=== PATIENT | male | born 1940 | race Caucasian/White ===

== ENCOUNTER → 2019-06-02 | Outpatient (CLI) | payer OTHER ==
--- NOTE | 2019-06-05 02:26 | ECWPNPC ---
PATIENT NAME: FREDY PENALOZA : 1940 GENDER: MALE VISIT DATE: 06/02/2019 DISCHARGE DATE: 06/02/19 1516 VISIT LOCKED DATE TIME: PHYSICIAN: ARSENIO KNIGHT RESOURCE: ARSENIO KNIGHT REASON FOR APPOINTMENT 1. BILATERAL HIP/BACK HISTORY OF PRESENT ILLNESS PAIN SCREENING: PATIENT HAS A COMPLAINT OF ACUTE OR CHRONIC PAIN :YES 78-YEAR-OLD MALE IN FOR INITIAL PAIN CONSULT. PATIENT HAS COMPLAINTS OF HIP AND BACK PAIN WHICH HAS BEEN PRESENT FOR MANY YEARS HE DOES ADMIT THE HIP PAIN IS FAR WORSE THAN THE BACK PAIN. HE RATES HIS PAIN CURRENTLY AT AN 8 OUT OF 10 AND DESCRIBES IT SHARP AND ON MOVEMENT. PATIENT IS CURRENTLY ON TRAMADOL TO HELP MANAGE HIS PAIN AND HE ADMITS TO TAKING IT AT NIGHT IT HELPS HIM SLEEP. FALL RISK SCREENING: SCREENING :NO FALLS REPORTED IN THE LAST YEAR CURRENT MEDICATIONS TAKING TRAMADOL HCL 50 MG TABLET 1 TABLET NEEDED ORALLY BID TAKING METFORMIN HCL 500 MG TABLET 1 TABLET WITH A MEAL ORALLY ONCE A DAY TAKING DOCUSATE SODIUM 50 MG CAPSULE 1 CAPSULE NEEDED ORALLY ONCE A DAY TAKING STIOLTO RESPIMAT 2.5-2.5 MCG/ACT AEROSOL SOLUTION 2 PUFFS INHALATION ONCE A DAY TAKING ASPIR-LOW 81 MG TABLET DELAYED RELEASE 1 TABLET ORALLY ONCE A DAY TAKING ROSUVASTATIN CALCIUM 40 MG TABLET 1 TABLET ORALLY ONCE A DAY TAKING CARVEDILOL 25 MG TABLET 1 TABLET WITH FOOD ORALLY TWICE A DAY TAKING FUROSEMIDE 40 MG TABLET DIRECTED ORALLY DAILY TAKING ISOSORBIDE MONONITRATE ER 120 MG TABLET EXTENDED RELEASE 24 HOUR 1 TABLET IN THE MORNING ORALLY ONCE A DAY TAKING OMEPRAZOLE 20 MG CAPSULE DELAYED RELEASE 1 CAPSULE 30 MINUTES BEFORE MORNING MEAL ORALLY ONCE A DAY TAKING ALLOPURINOL 300 MG TABLET 1 TABLET ORALLY ONCE A DAY TAKING PRESERVISION AREDS - CAPSULE DIRECTED ORALLY DAILY TAKING AMLODIPINE BESYLATE 10 MG TABLET 1 TABLET ORALLY ONCE A DAY TAKING LISINOPRIL 40 MG TABLET 1 TABLET ORALLY ONCE A DAY TAKING COLCHICINE 0.6 MG TABLET 1 TABLET ORALLY ONCE A DAY NEEDED TAKING NITROGLYCERIN 0.4 MG TABLET SUBLINGUAL DIRECTED SUBLINGUAL MEDICATION LIST REVIEWED AND RECONCILED WITH THE PATIENT PAST MEDICAL HISTORY HYPERTENSION ANGINA COPD CHF CARDIAC DISEASE MACULAR DEGENERATION DC - MULTIPLE PNEUMONIA ALLERGIES NIACIN: BLISTERS - ALLERGY SURGICAL HISTORY OPEN HEARTH SURGERY X3 MULTIPLE CARDIAC STENTS MANY OTHER - CANNOT REMEMBER FAMILY HISTORY FATHER: , DIAGNOSED WITH DIABETES, UNSPECIFIED HEART DISEASE MOTHER: , OTHER MALIGNANT NEOPLASM OF UNSPECIFIED SITE 3 SISTER(S) . 3 SON(S) - HEALTHY. MOTHER - LIVER CANCEROLDEST SISTER - DIABETESOLDEST SON - STROKE. SOCIAL HISTORY GENERAL: TOBACCO USE ARE YOU A:NONSMOKER OTHERS AT HOME: SPOUSE. EDUCATION LEVEL OF EDUCATION:HIGH SCHOOL DIET: LOW FAT, LOW CHOLESTEROL. LANGUAGE LANGUAGES SPOKEN:KYRGYZ RECREATIONAL DRUG USE DRUG USE?NO EXERCISE: NONE. 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 NEEDED?NO PAIN CLINIC PFS, CLERGY, PUBLIC HEALTH REFERRALS HAS THE PATIENT BEEN EDUCATED REGARDING HIS/HER PLAN OF CARE?YES HAS THE PATIENT BEEN EDUCATED REGARDING PAIN, THE RISK FOR PAIN, THE IMPORTANCE OF EFFECTIVE PAIN MANAGEMENT, AND THE PAIN ASSESSMENT PROCESS?YES LATEX QUESTIONNAIRE LATEX ALLERGY : HAVE YOU EVER DEVELOPED ANY TYPE OF REACTION AFTER HANDLING LATEX PRODUCTS SUCH RUBBER GLOVES, CONDOMS, DIAPHRAGMS, BALLOONS, SOCKS, OR UNDERWEAR?NO LATEX ALLERGY : HAVE YOU EVER DEVELOPED ANY TYPE OF REACTION DURING OR AFTER DENTAL APPOINTMENT, VAGINAL/RECTAL EXAMINATION, SURGICAL PROCEDURE, OR ANY OTHER EXPOSURE?NO LATEX RISK : HAVE YOU EVER HAD ANY DIFFICULTY BREATHING OR HIVES AFTER EATING OR HANDLING ANY FRUITS, OR VEGETABLES; SUCH KIWI, BANANAS, STONE FRUITS, OR CHESTNUTSNO LATEX RISK : DO YOU HAVE A PREVIOUS PERSONAL HISTORY OF MORE THAN NINE SURGERIES, SPINA BIFIDA, OR REPEATED CATHERIZATIONS? YES - PLEASE INDICATE : > 9 SURGERIES LATEX RISK : ARE YOU FREQUENTLY EXPOSED TO LATEX PRODUCTS IN YOUR OCCUPATION?NO DATE ASKED : 06/02/2019 CAFFEINE CAFFEINE USE?YES HOW OFTEN AND HOW MUCH? 1/DAY ADVANCE DIRECTIVE ADVANCE DIRECTIVE DISCUSSED WITH PATIENT:YES HCP - MARYAM CARRIONT () MARITAL STATUS: . ALCOHOL SCREENING DID YOU HAVE A DRINK CONTAINING ALCOHOL IN THE PAST YEAR?NO POINTS0 INTERPRETATIONNEGATIVE OCCUPATION: RETIRED. REVIEWED WITH PATIENT 06/02/2019 1433 JS. HOSPITALIZATION/MAJOR DIAGNOSTIC PROCEDURE SUREGERY RELATED REVIEW OF SYSTEMS REVIEWED BY: PROVIDER: VENKATESH HANSON . CONSTITUTIONAL: ANY CHANGE IN YOUR MEDICAL CONDITION? NO . CHILLS NO . FEVER NO . INFECTION: DO YOU HAVE NEW INFECTIONS? NO . DO YOU HAVE HISTORY OF MRSA? NO . MUSCULOSKELETAL: ANY NEW PATTERNS OF PAIN OR NUMBNESS? NO . SYTEMIC LUPUS NO . GASTROENTEROLOGY: ANY NEW CHANGE IN BOWEL CONTROL? YES, STATES SOME CONSTIPATION . BARRETTS ESOPHAGUS NO . CIRRHOSIS NO . HEPATITIS NO . LIVER FAILURE NO . ACID REFLUX NO . UNEXPLAINED WEIGHT LOSS NO . GENITOURINARY: ANY NEW CHANGE IN BLADDER CONTROL? NO . IS THERE A CHANCE YOU COULD BE ? NO . HEMATOLOGY/LYMPH: DO YOU TAKE ANY BLOOD THINNERS? (FOR EXAMPLE- COUMADIN, PLAVIX, AGGRENOX, PLATEL, PRADAXA, OR XARELTO) NO . WHEN WAS YOUR LAST DOSE? DATE: TIME: . LOW PLATELET COUNT NO . SICKLE CELL DISEASE NO . VON WILLIEBRANDS NO . FACTOR V LEIDEN NO . THALLASEMIA NO . ANEMIA NO . EASY BRUISING NO . NEUROLOGY: HAVE YOU FALLEN IN THE PAST 12 MONTHS? YES, STATES FALLS RELATED TO MULTIPLE CAUSES, NO MAJOR INJURIES OR ED VISITS RECENTLY RELATED TO FALLS . ANY NEW EXTREMITY NUMBNESS OR WEAKNESS? YES, STATES WEAKNESS TO BILATERAL LEGS AND NUMBNESS/TINGLING TO BILATERAL ARMS . HEAD INJURY NO . DEMENTIA NO . CEREBRAL PALSY NO . MULTIPLE SCLEROSIS NO . DIZZINESS NO . HEADACHE NO . STROKES NO . VERTIGO NO . CARDIOLOGY: DO YOU HAVE A PACEMAKER OR DEFIBRILLATOR? YES, PACEMAKER . ANGINA YES . HEART ATTACK YES, MULTIPLE . HEART SURGERY YES, STENTS PLACED . CONGESTIVE HEART FAILURE/FLUID OVERLOAD YES . CHEST PAIN PATIENT ADMITS, LESS FREQUENT . HIGH BLOOD PRESSURE ON MEDICATION(S) . IRREGULAR HEART BEAT AT REST . RESPIRATORY: HAVE YOU BEEN SICK IN THE PAST WEEK? NO . FEVER NO . FLU LIKE SYMPTOMS? NO . CPAP NO . BYPAP NO . ASTHMA NO . EMPHYSEMA NO . CHRONIC LUNG DISEASES YES, COPD . SHORTNESS OF BREATH ON EXERTION YES . COUGH NO . SNORING NO . INTEGUMENTARY: DO YOU HAVE ANY RASHES OR OPEN SORES? NO . ALLERGIC/IMMUNO: ARE YOU ALLERGIC TO IV DYE? NO . ANY NEW ALLERGIES? NO . PSYCHIATRIC: DO YOU HAVE THOUGHTS OF HURTING YOURSELF OR SOMEONE ELSE? NO . ARE YOU ABUSED, NEGLECTED, OR IN AN UNSAFE ENVIRONMENT? NO . ENDOCRINOLOGY: ARE YOU DIABETIC? YES . THYROID DISORDER NO . OTHER: DO YOU NEED ANY PRESCRIPTIONS? YES . IF YES, PLEASE LIST: ____TRAMADOL . ANY NEW PROBLEMS WITH YOUR MEDICATIONS? NO . WHEN DID YOU LAST EAT? ____ . WHEN DID YOU LAST DRINK? ____ . WHAT DID YOU LAST DRINK? ____ . NAME OF PERSON DRIVING YOU HOME? ____ . DO YOU HAVE ANY OTHER QUESTIONS OR CONCERNS PNEUMONIA AND SHINGLES VACCINES IN APRIL . VITAL SIGNS WT 158.6 LBS, HT 68 IN, BMI 24.11 INDEX, BP 136/63 MM HG, HR 71 /MIN, RR 18 /MIN, TEMP 97.5 F, OXYGEN SAT % 96%, SAFE IN ENV? (Y/N) YES, NA INITIALS AW 1414, REVIEWED BY: KANCHAN. EXAMINATION GENERAL EXAMINATION: GENERALNO ACUTE DISTRESS, WELL NOURISHED AND HYDRATED. PSYCHAPPROPRIATE MOOD AND AFFECT . LUNGS:CLEAR TO AUSCULTATION BILATERALLY, NO WHEEZES, RHONCHI, RALES. HEART:NO MURMURS, REGULAR RATE AND RHYTHM. BACK:DENIES TENDERNESS ALONG LUMBAR SPINE, SURROUNDING SKIN SHOWS NO ERYTHEMA, ECCHYMOSIS, INCREASED WARMTH, AND/OR SKIN ERUPTIONS NOTED. . MUSCULOSKELETAL:POINT TENDER LEFT HIP , NOTABLE WEAKNESS OF THE LOWER EXTREMITIES BILATERALLY. ASSESSMENTS CHRONIC HIP PAIN - M25.559 (PRIMARY) CHRONIC BILATERAL LOW BACK PAIN - M54.[address] HIP PAIN [address] SCAN : HIP, [id number] CT SCAN : HIP, [id number] CLINICAL NOTES: 78-YEAR-OLD MALE IN FOR INITIAL PAIN CONSULT. GIVEN PRESENTING SYMPTOMS AND RESULTS OF PHYSICAL EXAMINATION RECOMMENDED CT OF THE LUMBAR SPINE, AND HIPS BILATERALLY WITH FOLLOW-UP AFTER STUDIES. PATIENT HAS EXPRESSED UNDERSTANDING OF AND WAS IN AGREEMENT WITH TREATMENT PLAN. GIVEN TIME TO ASK QUESTIONS AND EXPRESS CONCERNS. CHRONIC BILATERAL LOW BACK PAIN CT SCAN : L-S [id number] PROCEDURE CODES FA211 ESTABILISHED PATIENT [facility] CHARGE DISPOSITION & COMMUNICATION FOLLOW UP POST IMAGING (REASON: CT OF HIPS BILATERALLY, AND LOW BACK) ELECTRONICALLY SIGNED BY BOAZ FOURNIER ON 06/04/2019 AT 01:35 PM EST DISCLAIMER : THIS IS A VISIT SUMMARY EXTRACTED FROM THE [employer] CHART. IT IS NOT A COPY OF THE [employer] PROGRESS NOTE. LANDON
== END ==
LOC: M PAIN 13:30
PROVIDERS: ATTEND Family Medicine
DX: M25.559 Pain in unspecified hip (principal); M54.5 Low back pain; E11.9 Type 2 diabetes mellitus without complications; I10 Essential (primary) hypertension; J44.9 Chronic obstructive pulmonary disease, unspecified; I25.2 Old myocardial infarction; Z91.09 Other allergy status, other than to drugs and biological substances; Z95.0 Presence of cardiac pacemaker; Z95.5 Presence of coronary angioplasty implant and graft; Z79.82 Long term (current) use of aspirin; Z79.84 Long term (current) use of oral hypoglycemic drugs; Z79.899 Other long term (current) drug therapy

== ENCOUNTER → 2019-06-18 | Outpatient (CLI) | payer OTHER ==
--- NOTE | 2019-06-20 00:40 | ECWPNPC ---
PATIENT NAME: RFEDY PENALOZA : 1940 GENDER: MALE VISIT DATE: 06/18/2019 DISCHARGE DATE: 06/18/19 1202 VISIT LOCKED DATE TIME: PHYSICIAN: ARSENIO KNIGHT RESOURCE: ARSENIO KNIGHT REASON FOR APPOINTMENT 1. CT FOLLOW UP HISTORY OF PRESENT ILLNESS HISTORY OF PRESENT ILLNESS: PAIN THE PATIENT DESCRIBES THE PAINDURING THE LAST MONTH SEVERITY - PAIN SCORE OF7/10 LOCATIONSLOWER BACK QUALITYSHARP DURATIONONLY WITH SPECIFIC ACTIVITIES, INTERMITTENT, AWAKENS FROM SLEEEP 78-YEAR-OLD MALE IN FOR CHRONIC PAIN FOLLOW-UP. PATIENT HAD CTS PERFORMED RECENTLY WHICH WILL BE REVIEWED WITH PATIENT. HE RATES HIS PAIN CURRENTLY AT A 7 OUT OF 10 AND DESCRIBES IT SHARP. FALL RISK SCREENING: SCREENING :TWO OR MORE FALLS WITHOUT INJURY IN THE PAST YEAR CURRENT MEDICATIONS TAKING TRAMADOL HCL 50 MG TABLET 1 TABLET NEEDED ORALLY BID TAKING METFORMIN HCL 500 MG TABLET 1 TABLET WITH A MEAL ORALLY ONCE A DAY TAKING DOCUSATE SODIUM 50 MG CAPSULE 1 CAPSULE NEEDED ORALLY ONCE A DAY TAKING STIOLTO RESPIMAT 2.5-2.5 MCG/ACT AEROSOL SOLUTION 2 PUFFS INHALATION ONCE A DAY TAKING ASPIR-LOW 81 MG TABLET DELAYED RELEASE 1 TABLET ORALLY ONCE A DAY TAKING ROSUVASTATIN CALCIUM 40 MG TABLET 1 TABLET ORALLY ONCE A DAY TAKING CARVEDILOL 25 MG TABLET 1 TABLET WITH FOOD ORALLY TWICE A DAY TAKING FUROSEMIDE 40 MG TABLET DIRECTED ORALLY DAILY TAKING ISOSORBIDE MONONITRATE ER 120 MG TABLET EXTENDED RELEASE 24 HOUR 1 TABLET IN THE MORNING ORALLY ONCE A DAY TAKING OMEPRAZOLE 20 MG CAPSULE DELAYED RELEASE 1 CAPSULE 30 MINUTES BEFORE MORNING MEAL ORALLY ONCE A DAY TAKING ALLOPURINOL 300 MG TABLET 1 TABLET ORALLY ONCE A DAY TAKING PRESERVISION AREDS - CAPSULE DIRECTED ORALLY DAILY TAKING AMLODIPINE BESYLATE 10 MG TABLET 1 TABLET ORALLY ONCE A DAY TAKING LISINOPRIL 40 MG TABLET 1 TABLET ORALLY ONCE A DAY TAKING COLCHICINE 0.6 MG TABLET 1 TABLET ORALLY ONCE A DAY NEEDED TAKING NITROGLYCERIN 0.4 MG TABLET SUBLINGUAL DIRECTED SUBLINGUAL MEDICATION LIST REVIEWED AND RECONCILED WITH THE PATIENT PAST MEDICAL HISTORY HYPERTENSION ANGINA COPD CHF CARDIAC DISEASE MACULAR DEGENERATION CA - MULTIPLE PNEUMONIA ALLERGIES NIACIN: BLISTERS - ALLERGY SURGICAL HISTORY OPEN HEARTH SURGERY X3 MULTIPLE CARDIAC STENTS MANY OTHER - CANNOT REMEMBER FAMILY HISTORY FATHER: , DIAGNOSED WITH DIABETES, UNSPECIFIED HEART DISEASE MOTHER: , OTHER MALIGNANT NEOPLASM OF UNSPECIFIED SITE 3 SISTER(S) . 3 SON(S) - HEALTHY. MOTHER - LIVER CANCEROLDEST SISTER - DIABETESOLDEST SON - STROKE. SOCIAL HISTORY GENERAL: TOBACCO USE ARE YOU A:NONSMOKER OTHERS AT HOME: SPOUSE. EDUCATION LEVEL OF EDUCATION:HIGH SCHOOL DIET: LOW FAT, LOW CHOLESTEROL. LANGUAGE LANGUAGES SPOKEN:URUGUAYAN RECREATIONAL DRUG USE DRUG USE?NO EXERCISE: NONE. 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 NEEDED?NO PAIN CLINIC PFS, CLERGY, PUBLIC HEALTH REFERRALS HAS THE PATIENT BEEN EDUCATED REGARDING HIS/HER PLAN OF CARE?YES HAS THE PATIENT BEEN EDUCATED REGARDING PAIN, THE RISK FOR PAIN, THE IMPORTANCE OF EFFECTIVE PAIN MANAGEMENT, AND THE PAIN ASSESSMENT PROCESS?YES LATEX QUESTIONNAIRE LATEX ALLERGY : HAVE YOU EVER DEVELOPED ANY TYPE OF REACTION AFTER HANDLING LATEX PRODUCTS SUCH RUBBER GLOVES, CONDOMS, DIAPHRAGMS, BALLOONS, SOCKS, OR UNDERWEAR?NO LATEX ALLERGY : HAVE YOU EVER DEVELOPED ANY TYPE OF REACTION DURING OR AFTER DENTAL APPOINTMENT, VAGINAL/RECTAL EXAMINATION, SURGICAL PROCEDURE, OR ANY OTHER EXPOSURE?NO DATE ASKED : 06/02/2019 LATEX RISK : HAVE YOU EVER HAD ANY DIFFICULTY BREATHING OR HIVES AFTER EATING OR HANDLING ANY FRUITS, OR VEGETABLES; SUCH KIWI, BANANAS, STONE FRUITS, OR CHESTNUTSNO LATEX RISK : DO YOU HAVE A PREVIOUS PERSONAL HISTORY OF MORE THAN NINE SURGERIES, SPINA BIFIDA, OR REPEATED CATHERIZATIONS? YES - PLEASE INDICATE : > 9 SURGERIES LATEX RISK : ARE YOU FREQUENTLY EXPOSED TO LATEX PRODUCTS IN YOUR OCCUPATION?NO CAFFEINE CAFFEINE USE?YES HOW OFTEN AND HOW MUCH? 1/DAY ADVANCE DIRECTIVE ADVANCE DIRECTIVE DISCUSSED WITH PATIENT:YES HCP - MARYAM CA () MARITAL STATUS: . ALCOHOL SCREENING DID YOU HAVE A DRINK CONTAINING ALCOHOL IN THE PAST YEAR?NO POINTS0 INTERPRETATIONNEGATIVE OCCUPATION: RETIRED. REVIEWED WITH PATIENT 06/02/2019 1433 JS. HOSPITALIZATION/MAJOR DIAGNOSTIC PROCEDURE SUREGERY RELATED REVIEW OF SYSTEMS REVIEWED BY: PROVIDER: VENKATESH HANSON . CONSTITUTIONAL: ANY CHANGE IN YOUR MEDICAL CONDITION? NO . CHILLS NO . FEVER NO . INFECTION: DO YOU HAVE NEW INFECTIONS? NO . DO YOU HAVE HISTORY OF MRSA? NO . MUSCULOSKELETAL: ANY NEW PATTERNS OF PAIN OR NUMBNESS? NO . GASTROENTEROLOGY: ANY NEW CHANGE IN BOWEL CONTROL? NO . GENITOURINARY: ANY NEW CHANGE IN BLADDER CONTROL? NO . IS THERE A CHANCE YOU COULD BE ? NO . HEMATOLOGY/LYMPH: DO YOU TAKE ANY BLOOD THINNERS? (FOR EXAMPLE- COUMADIN, PLAVIX, AGGRENOX, PLATEL, PRADAXA, OR XARELTO) NO . WHEN WAS YOUR LAST DOSE? DATE: TIME: . NEUROLOGY: HAVE YOU FALLEN IN THE PAST 12 MONTHS? YES, COUPLE OF FALLS WITH NO INJURY . ANY NEW EXTREMITY NUMBNESS OR WEAKNESS? NO . CARDIOLOGY: DO YOU HAVE A PACEMAKER OR DEFIBRILLATOR? YES, PACEMAKER . RESPIRATORY: HAVE YOU BEEN SICK IN THE PAST WEEK? NO . FEVER NO . FLU LIKE SYMPTOMS? NO . COUGH NO . INTEGUMENTARY: DO YOU HAVE ANY RASHES OR OPEN SORES? NO . ALLERGIC/IMMUNO: ARE YOU ALLERGIC TO IV DYE? NO . ANY NEW ALLERGIES? NO . PSYCHIATRIC: DO YOU HAVE THOUGHTS OF HURTING YOURSELF OR SOMEONE ELSE? NO . ARE YOU ABUSED, NEGLECTED, OR IN AN UNSAFE ENVIRONMENT? NO . ENDOCRINOLOGY: ARE YOU DIABETIC? NO . OTHER: DO YOU NEED ANY PRESCRIPTIONS? NO . IF YES, PLEASE LIST: ____ . ANY NEW PROBLEMS WITH YOUR MEDICATIONS? NO . WHEN DID YOU LAST EAT? ____ . WHEN DID YOU LAST DRINK? ____ . WHAT DID YOU LAST DRINK? ____ . NAME OF PERSON DRIVING YOU HOME? ____ . DO YOU HAVE ANY OTHER QUESTIONS OR CONCERNS NO . VITAL SIGNS WT 160.4 LBS, HT 68 IN, BMI 24.39 INDEX, BP 109/56 MM HG, HR 61 /MIN, RR 18 /MIN, TEMP 96.0 F, OXYGEN SAT % 95%, SAFE IN ENV? (Y/N) YES, NA INITIALS AW 1056, REVIEWED BY: LIANE SWAYER LPN. EXAMINATION GENERAL EXAMINATION: GENERALNO ACUTE DISTRESS, WELL NOURISHED AND HYDRATED. PSYCHAPPROPRIATE MOOD AND AFFECT . LUNGS:CLEAR TO AUSCULTATION BILATERALLY, NO WHEEZES, RHONCHI, RALES. HEART:NO MURMURS, REGULAR RATE AND RHYTHM. BACK: DENIES POINT TENDERNESS ALONG LUMBAR SPINE, SURROUNDING SKIN SHOWS NO ERYTHEMA, ECCHYMOSIS, INCREASED WARMTH, AND/OR SKIN ERUPTIONS NOTED. + MODIFIED SLR ON THE RIGHT SIDE.. MUSCULOSKELETAL: NOTABLE WEAKNESS OF THE RLE LLE WNL. ASSESSMENTS CHRONIC HIP PAIN - M25.559 (PRIMARY) INTERVERTEBRAL DISC DISORDER WITH RADICULOPATHY OF LUMBOSACRAL REGION - M51.17 TREATMENT INTERVERTEBRAL DISC DISORDER WITH RADICULOPATHY OF LUMBOSACRAL REGION NOTES: LESI L4-L5 L5-S1 EDUCATION REGARDING PROCEDURE REVEIWED WITH PATIENT REENA HANSON. CLINICAL NOTES: 78-YEAR-OLD MALE IN FOR CHRONIC PAIN FOLLOW-UP. CT RESULTS WERE REVIEWED. GIVEN PRESENTING SYMPTOMS, RESULTS PHYSICAL EXAMINATION, AND RESULTS OF CT RECOMMENDED EPIDURAL L4-L5 L5-S1 WITH POST PROCEDURAL FOLLOW-UP. PATIENT HAS EXPRESSED UNDERSTANDING OF AND WAS IN AGREEMENT WITH TREATMENT PLAN. GIVEN TIME TO ASK QUESTIONS AND EXPRESS CONCERNS. PROCEDURE CODES FA211 ESTABILISHED PATIENT [facility] CHARGE DISPOSITION & COMMUNICATION FOLLOW UP POSTPROCEDURE (REASON: LESI L4-L5 L5-S1) ELECTRONICALLY SIGNED BY BOAZ FOURNIER ON 06/19/2019 AT 09:37 AM EDT DISCLAIMER : THIS IS A VISIT SUMMARY EXTRACTED FROM THE [employer] CHART. IT IS NOT A COPY OF THE [employer] PROGRESS NOTE. LANDON
== END ==
LOC: M PAIN 11:15
PROVIDERS: ATTEND Family Medicine
DX: M25.559 Pain in unspecified hip (principal); M51.17 Intervertebral disc disorders with radiculopathy, lumbosacral region; G89.29 Other chronic pain; I10 Essential (primary) hypertension; J44.9 Chronic obstructive pulmonary disease, unspecified; I25.2 Old myocardial infarction; Z91.09 Other allergy status, other than to drugs and biological substances; Z95.0 Presence of cardiac pacemaker; Z79.82 Long term (current) use of aspirin; Z79.899 Other long term (current) drug therapy

== ENCOUNTER → 2019-07-29 | Outpatient (CLI) | payer OTHER ==
--- NOTE | 2019-08-05 02:18 | ECWPNPC ---
PATIENT NAME: FREDY PENALOZA : 1940 GENDER: MALE VISIT DATE: 07/29/2019 DISCHARGE DATE: 07/29/19 1037 VISIT LOCKED DATE TIME: PHYSICIAN: JOSE L SERVIN MD RESOURCE: JOSE L SERVIN MD REASON FOR APPOINTMENT 1. LESI L4/L5, L5/S1 HISTORY OF PRESENT ILLNESS HISTORY OF PRESENT ILLNESS: PAIN THE PATIENT DESCRIBES THE PAIN... PERMISSION FROM PATIENT WAS RECEIVED TO DO TELEPHONE OFFICE VISIT. 78 YEAR OLD MALE PATIENT WITH A HISTORY OF CHRONIC LOW BACK AND LEG PAIN. THE PATIENT DESCRIBES HIS PAIN IT COMES AND GOES, SHARP, STABBING, SORE, SHOOTING WITH A PAIN SCORE OF 6-9/10 DEPENDING ON PHYSICAL ACTIVITY. THE PATIENT STATES HIS MAIN PAIN IS IN HIS LOWER BACK, AND HE EXPERIENCES LEG PAIN MAINLY IN THE EVENING WHEN HE IS TRYING TO RELAX. THE PATIENT SAYS HE HAS BEEN SUFFERING FROM HIS PAIN FOR MANY YEARS. THE PATIENT SAYS HIS PAIN IS WORSENING AND IS AFFECTING HIS ABILITY TO PERFORM HIS DAILY ACTIVITIES. PATIENT DENIES UNEXPLAINABLE WEIGHT LOSS, FEVER, CHILLS, NEW CHANGES ON HIS URINARY OR BOWEL CONTROL. FALL RISK SCREENING: SCREENING :NO FALLS REPORTED IN THE LAST YEAR CURRENT MEDICATIONS TAKING TRAMADOL HCL 50 MG TABLET 1 TABLET NEEDED ORALLY BID TAKING METFORMIN HCL 500 MG TABLET 1 TABLET WITH A MEAL ORALLY ONCE A DAY TAKING DOCUSATE SODIUM 50 MG CAPSULE 1 CAPSULE NEEDED ORALLY ONCE A DAY TAKING STIOLTO RESPIMAT 2.5-2.5 MCG/ACT AEROSOL SOLUTION 2 PUFFS INHALATION ONCE A DAY TAKING ASPIR-LOW 81 MG TABLET DELAYED RELEASE 1 TABLET ORALLY ONCE A DAY TAKING ROSUVASTATIN CALCIUM 40 MG TABLET 1 TABLET ORALLY ONCE A DAY TAKING CARVEDILOL 25 MG TABLET 1 TABLET WITH FOOD ORALLY TWICE A DAY TAKING FUROSEMIDE 40 MG TABLET DIRECTED ORALLY DAILY TAKING ISOSORBIDE MONONITRATE ER 120 MG TABLET EXTENDED RELEASE 24 HOUR 1 TABLET IN THE MORNING ORALLY ONCE A DAY TAKING OMEPRAZOLE 20 MG CAPSULE DELAYED RELEASE 1 CAPSULE 30 MINUTES BEFORE MORNING MEAL ORALLY ONCE A DAY TAKING ALLOPURINOL 300 MG TABLET 1 TABLET ORALLY ONCE A DAY TAKING PRESERVISION AREDS - CAPSULE DIRECTED ORALLY DAILY TAKING AMLODIPINE BESYLATE 10 MG TABLET 1 TABLET ORALLY ONCE A DAY TAKING LISINOPRIL 40 MG TABLET 1 TABLET ORALLY ONCE A DAY TAKING COLCHICINE 0.6 MG TABLET 1 TABLET ORALLY ONCE A DAY NEEDED TAKING NITROGLYCERIN 0.4 MG TABLET SUBLINGUAL DIRECTED SUBLINGUAL MEDICATION LIST REVIEWED AND RECONCILED WITH THE PATIENT PAST MEDICAL HISTORY HYPERTENSION ANGINA COPD CHF CARDIAC DISEASE MACULAR DEGENERATION MN - MULTIPLE PNEUMONIA ALLERGIES NIACIN: BLISTERS - ALLERGY SURGICAL HISTORY OPEN HEARTH SURGERY X3 MULTIPLE CARDIAC STENTS MANY OTHER - CANNOT REMEMBER FAMILY HISTORY FATHER: , DIAGNOSED WITH DIABETES, UNSPECIFIED HEART DISEASE MOTHER: , OTHER MALIGNANT NEOPLASM OF UNSPECIFIED SITE 3 SISTER(S) . 3 SON(S) - HEALTHY. MOTHER - LIVER CANCEROLDEST SISTER - DIABETESOLDEST SON - STROKE. SOCIAL HISTORY GENERAL: TOBACCO USE ARE YOU A:NONSMOKER LATEX QUESTIONNAIRE LATEX ALLERGY : HAVE YOU EVER DEVELOPED ANY TYPE OF REACTION AFTER HANDLING LATEX PRODUCTS SUCH RUBBER GLOVES, CONDOMS, DIAPHRAGMS, BALLOONS, SOCKS, OR UNDERWEAR?NO LATEX ALLERGY : HAVE YOU EVER DEVELOPED ANY TYPE OF REACTION DURING OR AFTER DENTAL APPOINTMENT, VAGINAL/RECTAL EXAMINATION, SURGICAL PROCEDURE, OR ANY OTHER EXPOSURE?NO LATEX RISK : HAVE YOU EVER HAD ANY DIFFICULTY BREATHING OR HIVES AFTER EATING OR HANDLING ANY FRUITS, OR VEGETABLES; SUCH KIWI, BANANAS, STONE FRUITS, OR CHESTNUTSNO LATEX RISK : DO YOU HAVE A PREVIOUS PERSONAL HISTORY OF MORE THAN NINE SURGERIES, SPINA BIFIDA, OR REPEATED CATHERIZATIONS? YES - PLEASE INDICATE : > 9 SURGERIES LATEX RISK : ARE YOU FREQUENTLY EXPOSED TO LATEX PRODUCTS IN YOUR OCCUPATION?NO DATE ASKED : 07/29/2019 ALCOHOL SCREENING DID YOU HAVE A DRINK CONTAINING ALCOHOL IN THE PAST YEAR?NO POINTS0 INTERPRETATIONNEGATIVE RECREATIONAL DRUG USE DRUG USE?NO CAFFEINE CAFFEINE USE?YES HOW OFTEN AND HOW MUCH? 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 DIET: LOW FAT, LOW CHOLESTEROL. EXERCISE: NONE. MARITAL STATUS: . OTHERS AT HOME: SPOUSE. NEW PATIENT PAIN DIARY TODAY'S VISIT 07/29/2019 PATIENT DESCRIBES PAIN :IT COMES AND GOES, SHARP, STABBING, SORE, SHOOTING FROM 0-10, WHAT LEVEL IS YOUR PAIN TODAY?7 PAIN CLINIC PFS, CLERGY, PUBLIC HEALTH REFERRALS WAS THE PROVIDER NOTIFIED OF ANY PERTINENT INFO?YES HAS THE PATIENT BEEN EDUCATED REGARDING HIS/HER PLAN OF CARE?YES HAS THE PATIENT BEEN EDUCATED REGARDING PAIN, THE RISK FOR PAIN, THE IMPORTANCE OF EFFECTIVE PAIN MANAGEMENT, AND THE PAIN ASSESSMENT PROCESS?YES ADVANCE DIRECTIVE ADVANCE DIRECTIVE DISCUSSED WITH PATIENT:YES HCP - MARYAM PENALOZA () [phone] REVIEWED WITH PATIENT 06/02/2019 1433 JS. HOSPITALIZATION/MAJOR DIAGNOSTIC PROCEDURE SUREGERY RELATED REVIEW OF SYSTEMS REVIEWED BY: PROVIDER: JOSE L SERVIN MD . CONSTITUTIONAL: ANY CHANGE IN YOUR MEDICAL CONDITION? NO . CHILLS NO . FEVER NO . INFECTION: DO YOU HAVE NEW INFECTIONS? NO . DO YOU HAVE HISTORY OF MRSA? NO . MUSCULOSKELETAL: ANY NEW PATTERNS OF PAIN OR NUMBNESS? NO . GASTROENTEROLOGY: ANY NEW CHANGE IN BOWEL CONTROL? NO . GENITOURINARY: ANY NEW CHANGE IN BLADDER CONTROL? NO . IS THERE A CHANCE YOU COULD BE ? NO . HEMATOLOGY/LYMPH: DO YOU TAKE ANY BLOOD THINNERS? (FOR EXAMPLE- COUMADIN, PLAVIX, AGGRENOX, PLATEL, PRADAXA, OR XARELTO) NO . WHEN WAS YOUR LAST DOSE? DATE: TIME: . NEUROLOGY: HAVE YOU FALLEN IN THE PAST 12 MONTHS? YES, PT STATES THAT HE FELL WHILE AT HOME, DID NOT REPORT TO ED OR HOSPITAL. DS . ANY NEW EXTREMITY NUMBNESS OR WEAKNESS? NO . CARDIOLOGY: DO YOU HAVE A PACEMAKER OR DEFIBRILLATOR? NO . RESPIRATORY: HAVE YOU BEEN SICK IN THE PAST WEEK? NO . FEVER NO . FLU LIKE SYMPTOMS? NO . COUGH NO . INTEGUMENTARY: DO YOU HAVE ANY RASHES OR OPEN SORES? NO . ALLERGIC/IMMUNO: ARE YOU ALLERGIC TO IV DYE? NO . ANY NEW ALLERGIES? NO . PSYCHIATRIC: DO YOU HAVE THOUGHTS OF HURTING YOURSELF OR SOMEONE ELSE? NO . ARE YOU ABUSED, NEGLECTED, OR IN AN UNSAFE ENVIRONMENT? NO . ENDOCRINOLOGY: ARE YOU DIABETIC? YES, DOES NOT CHECK FSBS, TAKING ORAL MEDS DAILY . OTHER: DO YOU NEED ANY PRESCRIPTIONS? NO . IF YES, PLEASE LIST: ____ . ANY NEW PROBLEMS WITH YOUR MEDICATIONS? NO . WHEN DID YOU LAST EAT? ____ . WHEN DID YOU LAST DRINK? ____ . WHAT DID YOU LAST DRINK? ____ . NAME OF PERSON DRIVING YOU HOME? ____ . DO YOU HAVE ANY OTHER QUESTIONS OR CONCERNS NO . EXAMINATION GENERAL EXAMINATION: TELEPHONE ENCOUNTER. PATIENT IS ALERT O X [address] SCAN OF TH LUMBAR SPINE DONE ON 06/05/2019 SHOWS FACET ARTHROPATHY CHANGES. ASSESSMENTS SPONDYLOSIS WITHOUT MYELOPATHY OR RADICULOPATHY, LUMBAR REGION - M47.816 (PRIMARY) TREATMENT SPONDYLOSIS WITHOUT MYELOPATHY OR RADICULOPATHY, LUMBAR REGION CLINICAL NOTES: WE DISCUSSED SEVERAL ISSUES WITH MR. PENALOZA'S PAIN MANAGEMENT CASE. I DISCUSSED WITH THE PATIENT THAT HE IS A GOOD CANDIDATE FOR A LUMBAR FACET BLOCK OR TRIGGER POINT INJECTIONS. I DISCUSSED WITH THE PATIENT ABOUT REPLACING KENALOG WITH DEXAMETHASONE, WHICH IS A LESS POTENT STEROID, TO LESSEN THE RISK OF IMMUNOSUPPRESSION. THE PATIENT STATES HE PREFERS TO HOLD ON ANY INJECTION THERAPY WITH STEROIDS DUE TO THE CURRENT COVID-19 SITUATION. I DISCUSSED THE OPTION OF DIAGNOSTIC FACET BLOCKS TO CONSIDER RADIOFREQUENCY ABLATION IN THE FUTURE. HOWEVER, THE PATIENT SAYS HE WOULD LIKE TO DISCUSS OPTIONS IN SEVERAL MONTHS. THEREFORE, THE PATIENT WITH FOLLOW UP WITH THE NURSE PRACTITIONER IN 3 MONTHS TO DISCUSS OPTIONS TO PROCEED WITH. I ADVISED THE PATIENT TO CALL IF HE WOULD LIKE TO TALK OR BE SEEN SOONER. THE TOTAL TIME FOR TODAY'S TELEPHONE VISIT WAS 10 MINUTES. INSTRUCTIONS WERE GIVEN, QUESTIONS WERE ANSWERED, PATIENT REPORTS UNDERSTANDING AND AGREES WITH THE PLAN. I, AILIN POPE, DOCUMENTED THE ABOVE INFORMATION ACTING A SCRIBE FOR DR. SERVIN. I HAVE REVIEWED THE ABOVE DOCUMENT, WRITTEN BY AILIN MENDEZ AND I VERIFY THAT IT IS ACCURATE. . 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 IT IS NOT A COPY OF THE EDMdesigner PROGRESS NOTE. LANDON
== END ==
LOC: M PAIN 14:15
PROVIDERS: ATTEND Anesthesiology
DX: M47.816 Spondylosis without myelopathy or radiculopathy, lumbar region (principal); G89.29 Other chronic pain; I10 Essential (primary) hypertension; J44.9 Chronic obstructive pulmonary disease, unspecified; I25.2 Old myocardial infarction; E11.9 Type 2 diabetes mellitus without complications; Z79.82 Long term (current) use of aspirin; Z79.84 Long term (current) use of oral hypoglycemic drugs; Z79.899 Other long term (current) drug therapy

== ENCOUNTER 2019-12-25 15:44 | Day surgery (SDC) | payer OTHER ==
[2019-12-25] MEDS ORDERED: BACITRACIN PWD 50,000 UNITS VIAL As Ordered ONE (16:43)
[2019-12-25] MEDS ORDERED: LIDOCAINE 1% SDV 30ML VIAL As Ordered ONE (16:43)
[2019-12-25] MEDS ORDERED: RANO500T7 PO (17:00)
[2019-12-25] MEDS ORDERED: ceFAZolin SOD 2 GM in IV 1 EA IV ONE (17:00)
[2019-12-25] MEDS ORDERED: AMLO1TAB25 PO (17:00)
[2019-12-25] MEDS ORDERED: ROSU40TA4 PO (17:00)
[2019-12-25] MEDS ORDERED: ISOS120T7 PO (17:00)
[2019-12-25] MEDS ORDERED: CARV25TA PO (17:00)
[2019-12-25] MEDS ORDERED: FURO40TA2 PO (17:00)
[2019-12-25] MEDS ORDERED: LR 1,000 ML IV SCH (17:00)
[2019-12-25] MEDS ORDERED: LISI40TA PO (17:00)
[2019-12-25] MEDS ORDERED: ASPI81TA26 PO (17:00)
[2019-12-25] MEDS ORDERED: ONDANSETRON 4MG/2ML VIAL As Ordered ONE (17:26)
[2019-12-25] MEDS ORDERED: propofoL 200 MG/20 ML VIAL As Ordered ONE (17:26)
[2019-12-25] MEDS ORDERED: LIDOCAINE 2% 100MG/5ML SDV (FOR ANES.) As Ordered ONE (17:26)
[2019-12-25] MEDS ORDERED: dexameTHASONE 4 MG/ML 1ML VIAL (J1100 PER 1MG) As Ordered ONE (17:26)
[2019-12-25] MEDS ORDERED: fentaNYL 100 MCG/2 ML INJECTION (J3010) As Ordered ONE (17:27)
[2019-12-25] MEDS ORDERED: MIDAZOLAM INJ 2MG/2ML VIAL (J2250 PER 1MG) As Ordered ONE (17:27)
[2019-12-25] MEDS ORDERED: ONDANSETRON 4MG/2ML VIAL IV PRN (19:00)
[2019-12-25] MEDS ORDERED: fentaNYL 100 MCG/2 ML INJECTION (J3010) IV PRN (19:00)
[2019-12-25] MEDS ORDERED: NORCO, ANEXSIA 5/325MG TABLET (HYDROcodone/ACETAMINOPHEN) PO PRN (19:00)
[2019-12-25 19:15] VITALS: BP 172/74
--- NOTE | 2020-01-02 13:22 | RO ---
DATE OF OPERATION: 12/25/2019 PREOPERATIVE DIAGNOSES: * Pacemaker battery depletion. * Sinus node dysfunction. POSTOPERATIVE DIAGNOSES: * Pacemaker battery depletion. * Sinus node dysfunction. TITLE OF PROCEDURE: * Explantation of depleted pacemaker pulse generator. * Testing old sensing and pacing leads. * Implantation of new dual chamber pulse generator. IMPLANTING TWISTER OPERATOR: Dr. Lowell Lechuga. ANESTHESIOLOGIST: Dr. Raines. TYPE OF ANESTHESIA: Monitored local anesthesia. CLINICAL SUMMARY: This 79-year-old resident of [place], [place] is well known to my cardiology practice with history of ischemic and hypertensive heart disease, status post bypass surgery 1987 and 2005 with PTCA November 25, 2010 and last cardiac catheterization April, for chest pain with failed PTCA to OM1 with 100% occlusion, 1/5 grafts patent (GARVIN only), history of prior atrial flutter, ablated May,. He underwent dual chamber pacemaker implant ([employer] model #5826) January 05, 2009. [facility] and was found today to have his pacemaker at the end of life indicator. At this point his chief limitation is orthopedic. He has been using a walker for the past 6 months because of recurrent falls. Denies problem with chest discomfort, does fatigue easily but denies shortness of breath or orthopnea. He is unaware of his heart action. No history to suggest embolic phenomenon or claudication. On examination bright elderly male of medium body build, laying comfortably, no pallor or cyanosis. Heart rate 84 BPM and regular, blood pressure 168/81 supine, respiratory rate 18, O2 saturation 99% on room air and he was afebrile. Height 5 foot 8, weight 151.4 pounds. Normal oral moisture. Trachea midline. Neck veins were not elevated. Normal chest configuration and expansion with well healed left subclavian pacemaker pocket. Apical impulse lateral to the midclavicular line 5th intercostal space. Normal S1 and accentuated S2, unable to detect S2 splitting. S4 with obvious grade 3/6 systolic ejection murmur heard maximally along left sternal border, radiates well to the right base but also toward the apex. No diastolic murmur. Normal carotid upstrokes and volume with no bruits. Upper extremity femoral and pedal pulses were symmetrical and normal. Soft abdomen with no hepatosplenomegaly. 1 mm pitting edema up both lower legs. EKG showed consistent AV sequentially paced rhythm. In light of this the patient was referred to our cardiology practice here in [place] for pacemaker pulse generator replacement. DESCRIPTION OF PROCEDURE: In the fasting state following informed consent and Ancef 2 gm IV premedication, the patient was taken to the operating theater. Numerous skin electrodes were applied to facilitate continuous electrocardiographic monitoring. The left subclavian old pacemaker site was prepped and draped in the usual fashion and the skin over his old incision was infiltrated with 1% Xylocaine. A 5 cm linear incision was made over the same site and careful dissection was carried down to the level of the pectoralis fascia. The old pacemaker was then carefully explanted ([employer] model #5826, serial #[id number], implanted January 05, 2009) and the old atrial and ventricular pacing leads were then tested independently. The right ventricular lead ([employer] model #1688T/58, serial #[id number]) measurements were: Stimulation threshold 2.0 V/0.8ms/impedance 428 ohms, R wave amplitude measured 7.8 mV. The atrial lead ([employer] mode #1688T/46, serial #[id number]) measurements were: Stimulation threshold 0.7V/0.4ms/impedance 383 ohms, P wave amplitude measured 0.9 mV. These old pacing leads were then connected to a new dual chamber pulse generator ([employer] model #LZ2246, serial #[id number]) and appropriate DDD pacing was documented. The old pacer pocket was thoroughly irrigated with Bacitracin solution. The new dual chamber pulse generator was then placed in the pocket. The subcutaneous tissues were approximated using running chromic suture and skin was closed using chen. Dry dressing was applied. The patient was returned to the recovery room in good condition. No apparent complications. Estimated blood loss less than 5 mL. Current pacing settings have been left at low rate 70, upper rate 90, paced AV delays have been left at 350/325 with VIP activated to minimize ventricular pacing if possible. His pacing mode will be DDDR rate responsive. DISPOSITION: The patient will be able to go home once he is able to ambulate and is alert. His medications will resume: * Carvedilol 25 mg PO twice daily. * Amlodipine 10 mg daily. * Isosorbide Mononitrate 120 mg daily. * Lisinopril 40 mg daily. * Rosuvastatin 40 mg PO daily. * Aspirin 81 mg Enteric Coated PO daily. * Lasix 40 mg PO daily. He will be requested to perform only light activities of daily living with his left arm and avoid getting his incision wet until his chen are removed in my office in 7-10 days time. From that point on he will resume his regular follow up with the [facility] in [place]. LANDON
== END 2019-12-25 19:15 | disposition home or self-care (01) ==
LOC: M SDC 15:44
PROVIDERS: ATTEND Internal Medicine Cardiovascular Disease
DX: T82.111A Breakdown (mechanical) of cardiac pulse generator (battery), initial encounter (principal); X58.XXXA Exposure to other specified factors, initial encounter; E11.9 Type 2 diabetes mellitus without complications; I11.0 Hypertensive heart disease with heart failure; I25.119 Atherosclerotic heart disease of native coronary artery with unspecified angina pectoris; I50.9 Heart failure, unspecified; M54.5 Low back pain; Z79.899 Other long term (current) drug therapy; Z87.891 Personal history of nicotine dependence; Z95.5 Presence of coronary angioplasty implant and graft
CPT/HCPCS: 33228; 87486; 87581; 87633; 87798; C1785; J0690; J1100; J2250; J2405; J3010

== ENCOUNTER → 2020-10-05 | Outpatient (CLI) | payer OTHER ==
[~2020-10-05] MED LIST: AMLO1TAB25 PO; ASPI81TA26 PO; CARV25TA PO; FURO40TA2 PO; ISOS120T7 PO; LISI40TA4 PO; RANO500T7 PO; ROSU40TA4 PO
--- NOTE | 2020-10-08 14:02 | REP ---
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 COMPARISON: Comparison is made with outside prior chest CT images from September 08, 2020.. TECHNIQUE: 1 hour 9 minutes following the intravenous injection of a 8.11 mCi dose of F-18 FDG, three-dimensional PET scintigraphy is acquired from the skull base to the proximal thighs. Triplanar noncontrast CT scanning is acquired through the same anatomic range for attenuation correction, and image registration with scan parameters optimized to minimize radiation exposure to the patient. PET scintigraphy and CT datasets were fused and displayed on a workstation with multiplanar and projection display capability. FINDINGS: Head and neck soft tissues are unremarkable. In the thorax, there is multifocal calcific pleural plaquing. There is minimal FDG accumulation in right lower lobe and left lower lobe pleural based areas of thickening. Maximum standard uptake value in the right lower lobe is 2.15. Maximum standard uptake value in the pleural thickening area in the left lower lobe is 2.81. No other hypermetabolic focus is seen in the lung higgins. No hilar or mediastinal mass or hypermetabolic uptake is seen. In the abdomen and pelvis, normal hepatic, splenic, gastrointestinal, and genitourinary FDG distribution is seen. No abnormal hypermetabolic uptake is seen in the abdomen or pelvis. IMPRESSION: Non hypermetabolic uptake in the pleural plaques. 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 <Electronically signed by Venkatesh Khoury > 10/08/20 [id number]
== END ==
LOC: M PLARAD 13:53
PROVIDERS: ATTEND Nurse Practitioner Family
DX: Z77.090 Contact with and (suspected) exposure to asbestos (principal); J44.9 Chronic obstructive pulmonary disease, unspecified; I50.9 Heart failure, unspecified; E11.9 Type 2 diabetes mellitus without complications; Z95.0 Presence of cardiac pacemaker
CPT/HCPCS: 78815; A9552

== ENCOUNTER → 2022-05-22 | Outpatient (CLI) | payer OTHER, MEDICARE ==
[~2022-05-22] MED LIST changes: +ALLO100T PO; +CELE1CAP7 PO; +COLC0.6T47 PO; +METF500T13 PO; +NITR0.4S14 SL; +OMEP-173 PO; +STRI1AER2 IN
== END ==
LOC: M LABSMTC 08:39
PROVIDERS: ATTEND Anesthesiology
DX: Z01.812 Encounter for preprocedural laboratory examination (principal); Z11.52 Encounter for screening for COVID-19

== ENCOUNTER → 2022-06-12 | Outpatient (CLI) | payer MEDICARE, OTHER | LOC: M LABSMTC 08:13 | PROVIDERS: ATTEND Anesthesiology | DX: Z01.812 Encounter for preprocedural laboratory examination (principal); Z11.52 Encounter for screening for COVID-19 ==

== ENCOUNTER → 2022-06-16 | Day surgery (SDC) | payer MEDICARE, OTHER ==
[~2022-06-16] VITALS: Ht 172.7 cm; Wt 71.1 kg
[~2022-06-16] MED LIST changes: +LR 1,000 ML IV SCH; +ceFAZolin SOD 2 GM in IV 1 EA IV ONE
[2022-06-16 06:49] VITALS: BP 122/60
== END | disposition home or self-care (01) ==
LOC: M SDC 06:14
PROVIDERS: ATTEND Surgery
DX: K40.90 Unilateral inguinal hernia, without obstruction or gangrene, not specified as recurrent (principal); R05.9 Cough, unspecified; R09.89 Other specified symptoms and signs involving the circulatory and respiratory systems; Z53.09 Procedure and treatment not carried out because of other contraindication